=== PATIENT | female | born 1935 | race Caucasian/White ===

== ENCOUNTER 2020-09-10 18:39 | Outpatient (REF) | payer MEDICARE, SELFPAY ==
[2020-09-12 20:36] LABS: SARS-CoV-2 RNA Source Nasal/Nares
[2020-09-13 12:24] LABS: SARS-CoV-2 RNA Not Detected (NotDetected)
== END 2020-09-10 18:59 ==
LOC: LBN 18:39
PROVIDERS: PCP Nurse Practitioner Family; Visit Provider Nurse Practitioner Adult Health
DX: Z11.59 Encounter for screening for other viral diseases (principal)
CPT/HCPCS: U0003

== ENCOUNTER 2020-09-17 02:26 | Outpatient (CLI) | payer MEDICARE, BC, SELFPAY ==
--- NOTE | 2020-09-17 09:40 | DI.RAD_ITS ---
EXAM: XR ANKLE RT COMPLETE CLINICAL HISTORY: DISPLACED TRIMALLEOLAR FRACTURE TECHNIQUE: COMPARISON: No exams were available for comparison FINDINGS: Four views were obtained. The ankle is in a fiberglass splint. There is fixation apparatus in place in the distal tibia and fibula including a fixation screw across the tibiofibular joint, plate and s crew fixation of the distal fibula, posterior malleolar fixation screw, and medial malleolar fixation screws. The ankle mortise is fairly well maintained. No prior studies are available for comparison . IMPRESSION: Fixation apparatus in place as described above. Bony detail obscured by overlying cast material but alignment appears essentially anatomic. RADIATION DOSE DELIVERED: Total DLP
== END 2020-09-17 02:46 ==
PROVIDERS: PCP Nurse Practitioner Family; Visit Provider Nurse Practitioner Adult Health
DX: S82.851A Displaced trimalleolar fracture of right lower leg, initial encounter for closed fracture (principal)
CPT/HCPCS: 73610

== ENCOUNTER 2020-10-04 16:56 | Outpatient (REF) | payer MEDICARE, BC, SELFPAY ==
[2020-10-05 17:37] LABS: COVID-19 RT-PCR Result Not Detected ((See Note))
== END 2020-10-04 17:16 ==
LOC: LBN 16:56
PROVIDERS: PCP Nurse Practitioner Family; Visit Provider Nurse Practitioner Adult Health
DX: Z11.59 Encounter for screening for other viral diseases (principal)
CPT/HCPCS: U0003